=== PATIENT | male | born 1960 | race Caucasian/White ===

== ENCOUNTER 2023-11-12 12:42 | Outpatient (RCR) | payer OTHER, SELFPAY ==
[2023-11-12 13:22] LABS: % Basophils 0.6 % (0-2); % Eosinophils 0.9 % (0-6); % Immature Granulocytes 0.3 % (0-0.5); % Lymphocytes 37.9 % (20.5-51.1); % Monocytes 12.8 % (1.7-9.3); % Neutrophils 47.5 % (42.2-75.2); Absolute Lymphocytes 1.3 10^3/uL (1.2-3.4); Absolute Monocytes 0.4 10^3/uL (0.1-0.6); Absolute Neutrophils 1.6 10^3/uL (1.4-6.5); Hematocrit 41.3 % (39.0-52.0); Hemoglobin 14.1 g/dL (13.0-18.0); Mean Corp Hgb Conc. 34.1 g/dL (33.0-37.0); Mean Corpuscular Hgb 30.6 pg (27.0-31.0); Mean Corpuscular Volume 89.6 fL (80.0-94.0); Mean Platelet Volume 9.8 fL (7.4-10.4); Platelet Count 177 10^3/uL (130-400); Red Blood Cell Count 4.61 10^6/uL (4.70-6.10); Red Cell Dist. Width 12.6 % (11.5-14.5); White Blood Cell Count 3.4 10^3/uL (4.8-10.8)
[2023-11-12 13:27] VITALS: BP 133/60
== END 2023-11-13 09:44 | disposition home or self-care (01) ==
LOC: OID 12:42
PROVIDERS: ATTENDING PHYSICIAN Internal Medicine Hematology & Oncology; FAMILY PHYSICIAN Family Medicine
DX: D45 Polycythemia vera (principal)
CPT/HCPCS: 36591; 85025

== ENCOUNTER 2023-12-10 12:31 | Outpatient (RCR) | payer OTHER, SELFPAY ==
[2023-12-10 13:19] LABS: % Basophils 0.3 % (0-2); % Eosinophils 1.6 % (0-6); % Lymphocytes 34.3 % (20.5-51.1); % Monocytes 12.8 % (1.7-9.3); Absolute Eosinophils 0.1 10^3/uL (0-0.7); Absolute Lymphocytes 1.3 10^3/uL (1.2-3.4); Absolute Monocytes 0.5 10^3/uL (0.1-0.6); Absolute Neutrophils 1.9 10^3/uL (1.4-6.5); Hematocrit 40.6 % (39.0-52.0); Hemoglobin 14.3 g/dL (13.0-18.0); Mean Corp Hgb Conc. 35.2 g/dL (33.0-37.0); Mean Corpuscular Hgb 31.1 pg (27.0-31.0); Mean Corpuscular Volume 88.3 fL (80.0-94.0); Mean Platelet Volume 9.7 fL (7.4-10.4); Platelet Count 185 10^3/uL (130-400); Red Cell Dist. Width 13.4 % (11.5-14.5); White Blood Cell Count 3.8 10^3/uL (4.8-10.8)
== END 2024-01-03 23:59 | disposition home or self-care (01) ==
LOC: OID 12:31
PROVIDERS: ATTENDING PHYSICIAN Internal Medicine Hematology & Oncology; FAMILY PHYSICIAN Family Medicine
DX: D45 Polycythemia vera (principal)
CPT/HCPCS: 36591; 85025

== ENCOUNTER 2024-01-07 12:40 | Outpatient (RCR) | payer OTHER, SELFPAY ==
[2024-01-07 13:25] LABS: % Basophils 0.3 % (0-2); % Eosinophils 2.1 % (0-6); % Immature Granulocytes 0.3 % (0-0.5); % Lymphocytes 32.9 % (20.5-51.1); % Monocytes 10.4 % (1.7-9.3); Absolute Eosinophils 0.1 10^3/uL (0-0.7); Absolute Lymphocytes 1.3 10^3/uL (1.2-3.4); Absolute Monocytes 0.4 10^3/uL (0.1-0.6); Absolute Neutrophils 2.1 10^3/uL (1.4-6.5); Hematocrit 39.6 % (39.0-52.0); Hemoglobin 14.2 g/dL (13.0-18.0); Mean Corp Hgb Conc. 35.9 g/dL (33.0-37.0); Mean Corpuscular Hgb 32.4 pg (27.0-31.0); Mean Corpuscular Volume 90.4 fL (80.0-94.0); Mean Platelet Volume 10.6 fL (7.4-10.4); Platelet Count 102 10^3/uL (130-400); Red Blood Cell Count 4.38 10^6/uL (4.70-6.10); Red Cell Dist. Width 13.9 % (11.5-14.5); White Blood Cell Count 3.8 10^3/uL (4.8-10.8)
== END 2024-02-01 15:57 | disposition home or self-care (01) ==
LOC: OID 12:40
PROVIDERS: ATTENDING PHYSICIAN Internal Medicine Hematology & Oncology; FAMILY PHYSICIAN Family Medicine
DX: D45 Polycythemia vera (principal)
CPT/HCPCS: 85025

== ENCOUNTER 2024-02-04 12:48 | Outpatient (RCR) | payer OTHER, SELFPAY ==
[2024-02-04 13:16] LABS: % Basophils 0.6 % (0-2); % Eosinophils 1.8 % (0-6); % Lymphocytes 42.9 % (20.5-51.1); % Monocytes 14.6 % (1.7-9.3); % Neutrophils 40.1 % (42.2-75.2); Absolute Eosinophils 0.1 10^3/uL (0-0.7); Absolute Lymphocytes 1.4 10^3/uL (1.2-3.4); Absolute Monocytes 0.5 10^3/uL (0.1-0.6); Absolute Neutrophils 1.4 10^3/uL (1.4-6.5); Hematocrit 39.1 % (39.0-52.0); Hemoglobin 14.1 g/dL (13.0-18.0); Mean Corp Hgb Conc. 36.1 g/dL (33.0-37.0); Mean Corpuscular Volume 91.6 fL (80.0-94.0); Mean Platelet Volume 9.4 fL (7.4-10.4); Platelet Count 159 10^3/uL (130-400); Red Blood Cell Count 4.27 10^6/uL (4.70-6.10); Red Cell Dist. Width 12.6 % (11.5-14.5); White Blood Cell Count 3.4 10^3/uL (4.8-10.8)
== END 2024-03-04 23:59 | disposition home or self-care (01) ==
LOC: OID 12:48
PROVIDERS: ATTENDING PHYSICIAN Internal Medicine Hematology & Oncology; FAMILY PHYSICIAN Family Medicine
DX: D45 Polycythemia vera (principal)
CPT/HCPCS: 36591; 85025; 96523

== ENCOUNTER 2024-03-10 12:40 | Outpatient (RCR) | payer OTHER, SELFPAY ==
[2024-03-10 13:05] LABS: % Basophils 0.4 % (0-2); % Eosinophils 1.7 % (0-6); % Immature Granulocytes 0.2 % (0-0.5); % Lymphocytes 29.9 % (20.5-51.1); % Monocytes 10.3 % (1.7-9.3); % Neutrophils 57.5 % (42.2-75.2); Absolute Eosinophils 0.1 10^3/uL (0-0.7); Absolute Lymphocytes 1.4 10^3/uL (1.2-3.4); Absolute Monocytes 0.5 10^3/uL (0.1-0.6); Absolute Neutrophils 2.7 10^3/uL (1.4-6.5); Hematocrit 40.6 % (39.0-52.0); Hemoglobin 14.4 g/dL (13.0-18.0); Mean Corp Hgb Conc. 35.5 g/dL (33.0-37.0); Mean Corpuscular Hgb 33.3 pg (27.0-31.0); Mean Platelet Volume 9.3 fL (7.4-10.4); Platelet Count 168 10^3/uL (130-400); Red Blood Cell Count 4.32 10^6/uL (4.70-6.10); Red Cell Dist. Width 11.7 % (11.5-14.5); White Blood Cell Count 4.7 10^3/uL (4.8-10.8)
== END 2024-03-11 08:40 | disposition home or self-care (01) ==
LOC: OID 12:40
PROVIDERS: ATTENDING PHYSICIAN Internal Medicine Hematology & Oncology; FAMILY PHYSICIAN Family Medicine
DX: D45 Polycythemia vera (principal)
CPT/HCPCS: 36591; 85025

== ENCOUNTER 2024-04-06 12:39 | Outpatient (RCR) | payer OTHER, SELFPAY ==
[2024-04-06 13:05] VITALS: BP 148/66
[2024-04-06 13:13] LABS: % Basophils 0.3 % (0-2); % Eosinophils 2.4 % (0-6); % Lymphocytes 39.2 % (20.5-51.1); % Monocytes 12.2 % (1.7-9.3); % Neutrophils 45.9 % (42.2-75.2); Absolute Eosinophils 0.1 10^3/uL (0-0.7); Absolute Lymphocytes 1.3 10^3/uL (1.2-3.4); Absolute Monocytes 0.4 10^3/uL (0.1-0.6); Absolute Neutrophils 1.5 10^3/uL (1.4-6.5); Hematocrit 41.4 % (39.0-52.0); Hemoglobin 14.9 g/dL (13.0-18.0); Mean Corpuscular Hgb 33.8 pg (27.0-31.0); Mean Corpuscular Volume 93.9 fL (80.0-94.0); Mean Platelet Volume 9.3 fL (7.4-10.4); Platelet Count 170 10^3/uL (130-400); Red Blood Cell Count 4.41 10^6/uL (4.70-6.10); Red Cell Dist. Width 11.6 % (11.5-14.5); White Blood Cell Count 3.3 10^3/uL (4.8-10.8)
[2024-04-06] MEDS: CATHFLO/ACTIVASE 2 MG IV (14:37)
[2024-04-06 15:55] VITALS: BP 119/66
[2024-04-06 16:00] VITALS: BP 123/99
== END 2024-05-02 14:27 | disposition home or self-care (01) ==
LOC: OID 12:39
PROVIDERS: ATTENDING PHYSICIAN Internal Medicine Hematology & Oncology; FAMILY PHYSICIAN Family Medicine
DX: D45 Polycythemia vera (principal)
CPT/HCPCS: 85025; 96374; 99195; J2997

== ENCOUNTER → 2024-04-28 13:36 | Outpatient (REF) | payer OTHER, SELFPAY | LOC: RAD 13:36 | PROVIDERS: FAMILY PHYSICIAN Family Medicine | DX: Z97.8 Presence of other specified devices (principal) | CPT/HCPCS: 72128; 72131 ==

== ENCOUNTER 2024-05-05 12:47 | Outpatient (RCR) | payer OTHER, SELFPAY ==
[2024-05-05 13:20] LABS: % Basophils 0.6 % (0-2); % Eosinophils 1.6 % (0-6); % Lymphocytes 34.7 % (20.5-51.1); % Monocytes 13.9 % (1.7-9.3); % Neutrophils 49.2 % (42.2-75.2); Absolute Eosinophils 0.1 10^3/uL (0-0.7); Absolute Lymphocytes 1.1 10^3/uL (1.2-3.4); Absolute Monocytes 0.4 10^3/uL (0.1-0.6); Absolute Neutrophils 1.6 10^3/uL (1.4-6.5); Hemoglobin 13.8 g/dL (13.0-18.0); Mean Corp Hgb Conc. 35.4 g/dL (33.0-37.0); Mean Corpuscular Hgb 33.4 pg (27.0-31.0); Mean Corpuscular Volume 94.4 fL (80.0-94.0); Mean Platelet Volume 9.5 fL (7.4-10.4); Platelet Count 160 10^3/uL (130-400); Red Blood Cell Count 4.13 10^6/uL (4.70-6.10); Red Cell Dist. Width 11.5 % (11.5-14.5); White Blood Cell Count 3.2 10^3/uL (4.8-10.8)
[2024-05-05 13:24] VITALS: BP 140/72
== END 2024-05-31 15:28 | disposition home or self-care (01) ==
LOC: OID 12:47
PROVIDERS: ATTENDING PHYSICIAN Internal Medicine Hematology & Oncology; FAMILY PHYSICIAN Family Medicine
DX: D45 Polycythemia vera (principal)
CPT/HCPCS: 36591; 85025

== ENCOUNTER → 2024-06-09 13:13 | Outpatient (REF) | payer OTHER, SELFPAY | LOC: RAD 13:13 | PROVIDERS: ATTENDING PHYSICIAN Registered Nurse; FAMILY PHYSICIAN Family Medicine | DX: I77.9 Disorder of arteries and arterioles, unspecified (principal) | CPT/HCPCS: 93922; 93925; 93978 ==

== ENCOUNTER 2024-06-15 12:39 | Outpatient (RCR) | payer OTHER, SELFPAY ==
[2024-06-15 13:09] VITALS: BP 143/72
[2024-06-15 13:27] LABS: % Basophils 0.6 % (0-2); % Eosinophils 2.2 % (0-6); % Lymphocytes 34.2 % (20.5-51.1); % Monocytes 12.7 % (1.7-9.3); % Neutrophils 50.3 % (42.2-75.2); Absolute Eosinophils 0.1 10^3/uL (0-0.7); Absolute Lymphocytes 1.2 10^3/uL (1.2-3.4); Absolute Monocytes 0.5 10^3/uL (0.1-0.6); Absolute Neutrophils 1.8 10^3/uL (1.4-6.5); Hematocrit 40.7 % (39.0-52.0); Hemoglobin 14.5 g/dL (13.0-18.0); Mean Corp Hgb Conc. 35.6 g/dL (33.0-37.0); Mean Corpuscular Hgb 33.7 pg (27.0-31.0); Mean Corpuscular Volume 94.7 fL (80.0-94.0); Mean Platelet Volume 9.3 fL (7.4-10.4); Platelet Count 167 10^3/uL (130-400); Red Cell Dist. Width 11.6 % (11.5-14.5); White Blood Cell Count 3.6 10^3/uL (4.8-10.8)
== END 2024-06-16 08:41 | disposition home or self-care (01) ==
LOC: OID 12:39
PROVIDERS: ATTENDING PHYSICIAN Internal Medicine Hematology & Oncology; FAMILY PHYSICIAN Family Medicine
DX: D45 Polycythemia vera (principal)
CPT/HCPCS: 36591; 85025

== ENCOUNTER → 2024-06-21 13:08 | Outpatient (REF) | payer OTHER, SELFPAY | LOC: RAD 13:08 | PROVIDERS: ATTENDING PHYSICIAN Surgery Vascular Surgery; FAMILY PHYSICIAN Family Medicine | DX: R60.0 Localized edema (principal) | CPT/HCPCS: 74174; Q9967 ==

== ENCOUNTER 2024-07-12 12:39 | Outpatient (RCR) | payer MEDICARE, OTHER, SELFPAY ==
[2024-07-12 13:18] LABS: % Basophils 0.6 % (0-2); % Eosinophils 1.4 % (0-6); % Immature Granulocytes 0.2 % (0-0.5); % Lymphocytes 21.7 % (20.5-51.1); % Monocytes 13.2 % (1.7-9.3); % Neutrophils 62.9 % (42.2-75.2); Absolute Eosinophils 0.1 10^3/uL (0-0.7); Absolute Lymphocytes 1.1 10^3/uL (1.2-3.4); Absolute Monocytes 0.7 10^3/uL (0.1-0.6); Absolute Neutrophils 3.3 10^3/uL (1.4-6.5); Hematocrit 42.6 % (39.0-52.0); Hemoglobin 15.3 g/dL (13.0-18.0); Mean Corp Hgb Conc. 35.9 g/dL (33.0-37.0); Mean Corpuscular Hgb 33.9 pg (27.0-31.0); Mean Corpuscular Volume 94.5 fL (80.0-94.0); Mean Platelet Volume 8.8 fL (7.4-10.4); Platelet Count 143 10^3/uL (130-400); Red Blood Cell Count 4.51 10^6/uL (4.70-6.10); Red Cell Dist. Width 11.7 % (11.5-14.5); White Blood Cell Count 5.2 10^3/uL (4.8-10.8)
[2024-07-12 13:21] VITALS: BP 122/74
[2024-07-12 15:25] VITALS: BP 149/71
[2024-07-12 15:31] VITALS: BP 112/77
== END 2024-07-13 09:54 | disposition home or self-care (01) ==
LOC: OID 12:39
PROVIDERS: ATTENDING PHYSICIAN Internal Medicine Hematology & Oncology; FAMILY PHYSICIAN Family Medicine
DX: D45 Polycythemia vera (principal)
CPT/HCPCS: 85025; 99195

== ENCOUNTER 2024-08-15 12:37 | Outpatient (RCR) | payer MEDICARE, OTHER, SELFPAY ==
[2024-08-15 13:05] VITALS: BP 147/83
[2024-08-15 13:08] LABS: % Basophils 0.6 % (0-2); % Eosinophils 0.8 % (0-6); % Immature Granulocytes 0.2 % (0-0.5); % Monocytes 14.1 % (1.7-9.3); % Neutrophils 58.3 % (42.2-75.2); Absolute Lymphocytes 1.4 10^3/uL (1.2-3.4); Absolute Monocytes 0.8 10^3/uL (0.1-0.6); Absolute Neutrophils 3.1 10^3/uL (1.4-6.5); Hematocrit 42.1 % (39.0-52.0); Hemoglobin 15.2 g/dL (13.0-18.0); Mean Corp Hgb Conc. 36.1 g/dL (33.0-37.0); Mean Corpuscular Volume 94.2 fL (80.0-94.0); Mean Platelet Volume 9.4 fL (7.4-10.4); Nucleated Red Blood Cells % 0 % (-); Platelet Count 178 10^3/uL (130-400); Red Blood Cell Count 4.47 10^6/uL (4.70-6.10); Red Cell Dist. Width 12.3 % (11.5-14.5); White Blood Cell Count 5.3 10^3/uL (4.8-10.8)
[2024-08-15 14:00] VITALS: BP 126/71
[2024-08-15 14:05] VITALS: BP 97/67
== END 2024-08-16 11:05 | disposition home or self-care (01) ==
LOC: OID 12:37
PROVIDERS: ATTENDING PHYSICIAN Internal Medicine Hematology & Oncology; FAMILY PHYSICIAN Family Medicine
DX: D45 Polycythemia vera (principal)
CPT/HCPCS: 85025; 99195

== ENCOUNTER 2024-09-13 12:35 | Outpatient (RCR) | payer MEDICARE, OTHER, SELFPAY ==
[2024-09-13 13:07] VITALS: BP 143/78
[2024-09-13 13:35] LABS: % Basophils 0.3 % (0-2); % Eosinophils 1.1 % (0-6); % Immature Granulocytes 0.2 % (0-0.5); % Lymphocytes 12.5 % (20.5-51.1); % Monocytes 7.6 % (1.7-9.3); % Neutrophils 78.3 % (42.2-75.2); Absolute Eosinophils 0.1 10^3/uL (0-0.7); Absolute Lymphocytes 0.8 10^3/uL (1.2-3.4); Absolute Monocytes 0.5 10^3/uL (0.1-0.6); Absolute Neutrophils 5.2 10^3/uL (1.4-6.5); Hematocrit 41.4 % (39.0-52.0); Hemoglobin 14.8 g/dL (13.0-18.0); Mean Corp Hgb Conc. 35.7 g/dL (33.0-37.0); Mean Corpuscular Hgb 34.4 pg (27.0-31.0); Mean Corpuscular Volume 96.3 fL (80.0-94.0); Mean Platelet Volume 9.1 fL (7.4-10.4); Platelet Count 179 10^3/uL (130-400); Red Cell Dist. Width 11.7 % (11.5-14.5); White Blood Cell Count 6.6 10^3/uL (4.8-10.8)
== END 2024-10-04 23:59 | disposition home or self-care (01) ==
LOC: OID 12:35
PROVIDERS: ATTENDING PHYSICIAN Internal Medicine Hematology & Oncology; FAMILY PHYSICIAN Family Medicine
DX: D45 Polycythemia vera (principal)
CPT/HCPCS: 36591; 85025

== ENCOUNTER 2024-10-11 12:36 | Outpatient (RCR) | payer MEDICARE, OTHER, SELFPAY ==
[2024-10-11 13:00] VITALS: BP 128/71
[2024-10-11 13:33] LABS: % Basophils 0.6 % (0-2); % Eosinophils 1.6 % (0-6); % Lymphocytes 39.4 % (20.5-51.1); % Neutrophils 41.4 % (42.2-75.2); Absolute Eosinophils 0.1 10^3/uL (0-0.7); Absolute Lymphocytes 1.2 10^3/uL (1.2-3.4); Absolute Monocytes 0.5 10^3/uL (0.1-0.6); Absolute Neutrophils 1.3 10^3/uL (1.4-6.5); Hematocrit 41.3 % (39.0-52.0); Hemoglobin 14.5 g/dL (13.0-18.0); Mean Corp Hgb Conc. 35.1 g/dL (33.0-37.0); Mean Corpuscular Hgb 33.3 pg (27.0-31.0); Mean Corpuscular Volume 94.9 fL (80.0-94.0); Mean Platelet Volume 9.2 fL (7.4-10.4); Platelet Count 157 10^3/uL (130-400); Red Blood Cell Count 4.35 10^6/uL (4.70-6.10); Red Cell Dist. Width 11.3 % (11.5-14.5); White Blood Cell Count 3.1 10^3/uL (4.8-10.8)
== END 2024-10-12 08:43 | disposition home or self-care (01) ==
LOC: OID 12:36
PROVIDERS: ATTENDING PHYSICIAN Internal Medicine Hematology & Oncology; FAMILY PHYSICIAN Family Medicine
DX: D45 Polycythemia vera (principal)
CPT/HCPCS: 36591; 85025

== ENCOUNTER 2024-11-09 12:35 | Outpatient (RCR) | payer MEDICARE, OTHER, SELFPAY ==
[2024-11-09 12:55] LABS: % Basophils 0.5 % (0-2); % Immature Granulocytes 0.3 % (0-0.5); % Lymphocytes 34.5 % (20.5-51.1); % Monocytes 13.3 % (1.7-9.3); % Neutrophils 50.4 % (42.2-75.2); Absolute Lymphocytes 1.3 10^3/uL (1.2-3.4); Absolute Monocytes 0.5 10^3/uL (0.1-0.6); Absolute Neutrophils 1.9 10^3/uL (1.4-6.5); Hematocrit 44.4 % (39.0-52.0); Hemoglobin 15.5 g/dL (13.0-18.0); Mean Corp Hgb Conc. 34.9 g/dL (33.0-37.0); Mean Corpuscular Hgb 32.6 pg (27.0-31.0); Mean Corpuscular Volume 93.3 fL (80.0-94.0); Mean Platelet Volume 9.2 fL (7.4-10.4); Platelet Count 197 10^3/uL (130-400); Red Blood Cell Count 4.76 10^6/uL (4.70-6.10); Red Cell Dist. Width 11.7 % (11.5-14.5); White Blood Cell Count 3.8 10^3/uL (4.8-10.8)
[2024-11-09 13:00] VITALS: BP 154/81
[2024-11-09 13:45] VITALS: BP 125/72
[2024-11-09 14:20] VITALS: BP 107/69
== END 2024-11-10 08:34 | disposition home or self-care (01) ==
LOC: OID 12:35
PROVIDERS: ATTENDING PHYSICIAN Internal Medicine Hematology & Oncology; FAMILY PHYSICIAN Family Medicine
DX: D45 Polycythemia vera (principal)
CPT/HCPCS: 85025; 99195

== ENCOUNTER 2024-12-07 12:37 | Outpatient (RCR) | payer MEDICARE, OTHER, SELFPAY ==
[2024-12-07 13:20] LABS: % Basophils 0.7 % (0-2); % Eosinophils 1.7 % (0-6); % Lymphocytes 38.6 % (20.5-51.1); % Monocytes 15.3 % (1.7-9.3); % Neutrophils 43.7 % (42.2-75.2); Absolute Eosinophils 0.1 10^3/uL (0-0.7); Absolute Lymphocytes 1.1 10^3/uL (1.2-3.4); Absolute Monocytes 0.5 10^3/uL (0.1-0.6); Absolute Neutrophils 1.3 10^3/uL (1.4-6.5); Hematocrit 39.8 % (39.0-52.0); Hemoglobin 13.8 g/dL (13.0-18.0); Mean Corp Hgb Conc. 34.7 g/dL (33.0-37.0); Mean Corpuscular Hgb 32.5 pg (27.0-31.0); Mean Corpuscular Volume 93.9 fL (80.0-94.0); Mean Platelet Volume 9.1 fL (7.4-10.4); Platelet Count 185 10^3/uL (130-400); Red Blood Cell Count 4.24 10^6/uL (4.70-6.10); Red Cell Dist. Width 12.4 % (11.5-14.5)
--- NOTE | 2024-12-07 14:01 | PTCARENOTE ---
Therapeutic phlebotomy held Hgb 13.8 Hct 39.8. port flushed with heparin and d/c home.
== END 2024-12-08 09:37 | disposition home or self-care (01) ==
LOC: OID 12:37
PROVIDERS: ATTENDING PHYSICIAN Internal Medicine Hematology & Oncology; FAMILY PHYSICIAN Family Medicine
DX: D45 Polycythemia vera (principal)
CPT/HCPCS: 85025; 96523

== ENCOUNTER 2025-01-04 12:38 | Outpatient (RCR) | payer MEDICARE, OTHER, SELFPAY ==
[2025-01-04 13:06] LABS: % Basophils 0.3 % (0-2); % Eosinophils 0.6 % (0-6); % Immature Granulocytes 0.3 % (0-0.5); % Lymphocytes 36.5 % (20.5-51.1); % Monocytes 14.2 % (1.7-9.3); % Neutrophils 48.1 % (42.2-75.2); Absolute Lymphocytes 1.2 10^3/uL (1.2-3.4); Absolute Monocytes 0.5 10^3/uL (0.1-0.6); Absolute Neutrophils 1.6 10^3/uL (1.4-6.5); Hematocrit 41.5 % (39.0-52.0); Hemoglobin 14.6 g/dL (13.0-18.0); Mean Corp Hgb Conc. 35.2 g/dL (33.0-37.0); Mean Corpuscular Hgb 32.9 pg (27.0-31.0); Mean Corpuscular Volume 93.5 fL (80.0-94.0); Mean Platelet Volume 9.1 fL (7.4-10.4); Platelet Count 174 10^3/uL (130-400); Red Blood Cell Count 4.44 10^6/uL (4.70-6.10); Red Cell Dist. Width 12.4 % (11.5-14.5); White Blood Cell Count 3.4 10^3/uL (4.8-10.8)
== END 2025-02-01 23:59 | disposition home or self-care (01) ==
LOC: OID 12:38
PROVIDERS: ATTENDING PHYSICIAN Internal Medicine Hematology & Oncology; FAMILY PHYSICIAN Family Medicine
DX: D45 Polycythemia vera (principal)
CPT/HCPCS: 85025; 96523

== ENCOUNTER 2025-02-13 12:39 | Outpatient (RCR) | payer MEDICARE, OTHER, SELFPAY ==
[2025-02-13 13:18] LABS: % Basophils 0.3 % (0-2); % Eosinophils 1.5 % (0-6); % Immature Granulocytes 0.3 % (0-0.5); % Lymphocytes 36.9 % (20.5-51.1); Absolute Eosinophils 0.1 10^3/uL (0-0.7); Absolute Lymphocytes 1.3 10^3/uL (1.2-3.4); Absolute Monocytes 0.6 10^3/uL (0.1-0.6); Absolute Neutrophils 1.6 10^3/uL (1.4-6.5); Hemoglobin 15.3 g/dL (13.0-18.0); Mean Corp Hgb Conc. 35.6 g/dL (33.0-37.0); Mean Corpuscular Hgb 33.3 pg (27.0-31.0); Mean Corpuscular Volume 93.5 fL (80.0-94.0); Mean Platelet Volume 8.8 fL (7.4-10.4); Platelet Count 159 10^3/uL (130-400); Red Cell Dist. Width 12.8 % (11.5-14.5); White Blood Cell Count 3.4 10^3/uL (4.8-10.8)
[2025-02-13 13:27] VITALS: BP 156/87
[2025-02-13 15:05] VITALS: BP 149/79
[2025-02-13 15:10] VITALS: BP 118/72
== END 2025-03-04 23:59 | disposition home or self-care (01) ==
LOC: OID 12:39
PROVIDERS: ATTENDING PHYSICIAN Internal Medicine Hematology & Oncology; FAMILY PHYSICIAN Family Medicine
DX: D45 Polycythemia vera (principal)
CPT/HCPCS: 85025; 99195

== ENCOUNTER 2025-03-13 12:30 | Outpatient (RCR) | payer MEDICARE, OTHER, SELFPAY ==
[2025-03-13 13:22] LABS: % Eosinophils 0.6 % (0-6); % Immature Granulocytes 0.3 % (0-0.5); % Monocytes 14.4 % (1.7-9.3); % Neutrophils 50.7 % (42.2-75.2); Absolute Monocytes 0.5 10^3/uL (0.1-0.6); Absolute Neutrophils 1.6 10^3/uL (1.4-6.5); Hematocrit 39.5 % (39.0-52.0); Mean Corp Hgb Conc. 35.4 g/dL (33.0-37.0); Mean Corpuscular Hgb 33.3 pg (27.0-31.0); Mean Platelet Volume 9.1 fL (7.4-10.4); Platelet Count 166 10^3/uL (130-400); Red Cell Dist. Width 12.7 % (11.5-14.5); White Blood Cell Count 3.1 10^3/uL (4.8-10.8)
== END 2025-04-03 23:59 | disposition home or self-care (01) ==
LOC: OID 12:30
PROVIDERS: ATTENDING PHYSICIAN Internal Medicine Hematology & Oncology; FAMILY PHYSICIAN Family Medicine
DX: D45 Polycythemia vera (principal)
CPT/HCPCS: 36591; 85025; 96523

== ENCOUNTER 2025-04-20 12:36 | Outpatient (RCR) | payer MEDICARE, OTHER, SELFPAY ==
[2025-04-20 13:00] VITALS: BP 148/84
[2025-04-20 13:03] LABS: Hematocrit 44.0 % (39.0-52.0); Hemoglobin 15.5 g/dL (13.0-18.0); Mean Corp Hgb Conc. 35.2 g/dL (33.0-37.0); Mean Corpuscular Volume 94.8 fL (80.0-94.0); Platelet Count 176 10^3/uL (130-400); Red Cell Dist. Width 12.4 % (11.5-14.5)
[2025-04-20 14:15] VITALS: BP 118/65
[2025-04-20 14:30] VITALS: BP 103/62
== END 2025-04-21 10:39 | disposition home or self-care (01) ==
LOC: OID 12:36
PROVIDERS: ATTENDING PHYSICIAN Internal Medicine Hematology & Oncology; FAMILY PHYSICIAN Family Medicine
DX: D45 Polycythemia vera (principal)
CPT/HCPCS: 36591; 85025; 99195

== ENCOUNTER 2025-05-18 12:36 | Outpatient (RCR) | payer MEDICARE, OTHER, SELFPAY ==
[2025-05-18 13:00] VITALS: BP 144/74
[2025-05-18 13:16] LABS: Hematocrit 39.2 % (39.0-52.0); Hemoglobin 13.7 g/dL (13.0-18.0); Mean Corp Hgb Conc. 34.9 g/dL (33.0-37.0); Mean Corpuscular Volume 94.7 fL (80.0-94.0); Platelet Count 215 10^3/uL (130-400); Red Cell Dist. Width 12.3 % (11.5-14.5)
== END 2025-05-19 08:13 | disposition home or self-care (01) ==
LOC: OID 12:36
PROVIDERS: ATTENDING PHYSICIAN Internal Medicine Hematology & Oncology; FAMILY PHYSICIAN Family Medicine
DX: D45 Polycythemia vera (principal)
CPT/HCPCS: 85025

== ENCOUNTER → 2025-06-08 12:07 | Outpatient (REF) | payer MEDICARE, OTHER, SELFPAY ==
[2025-06-08 13:10] VITALS: BP 160/82; BP_SYST 63
[2025-06-08 13:58] VITALS: BP 139/77; BP_SYST 58
[2025-06-08 14:05] VITALS: BP 139/77
== END ==
LOC: RADI 12:07
PROVIDERS: ATTENDING PHYSICIAN Internal Medicine Hematology & Oncology; FAMILY PHYSICIAN Family Medicine
DX: Z45.2 Encounter for adjustment and management of vascular access device (principal); D45 Polycythemia vera
CPT/HCPCS: 36598

== ENCOUNTER → 2025-06-27 08:26 | Outpatient (REF) | payer MEDICARE, OTHER, SELFPAY ==
[2025-06-27 08:55] VITALS: BP 148/93; BP_SYST 53
[2025-06-27] MEDS: ANCEF 10 IV (09:58)
[2025-06-27 12:25] VITALS: BP 136/71; BP_SYST 53
== END ==
LOC: RADI 08:26
PROVIDERS: ATTENDING PHYSICIAN Internal Medicine Hematology & Oncology
DX: T82.594A Other mechanical complication of infusion catheter, initial encounter (principal); Y82.8 Other medical devices associated with adverse incidents; D45 Polycythemia vera
CPT/HCPCS: 36561; 36590; 76937; 77001; 99152; 99153; C1788

== ENCOUNTER 2025-07-17 12:37 | Outpatient (RCR) | payer MEDICARE, OTHER, SELFPAY ==
[2025-07-17 13:10] LABS: Hematocrit 39.9 % (39.0-52.0); Hemoglobin 14.1 g/dL (13.0-18.0); Mean Corp Hgb Conc. 35.3 g/dL (33.0-37.0); Mean Corpuscular Volume 93.2 fL (80.0-94.0); Platelet Count 193 10^3/uL (130-400); Red Cell Dist. Width 12.6 % (11.5-14.5)
== END 2025-08-04 23:59 | disposition home or self-care (01) ==
LOC: OID 12:37
PROVIDERS: ATTENDING PHYSICIAN Internal Medicine Hematology & Oncology; FAMILY PHYSICIAN Family Medicine
DX: D45 Polycythemia vera (principal)
CPT/HCPCS: 36591; 85025

== ENCOUNTER → 2025-07-24 12:42 | Outpatient (REF) | payer MEDICARE, OTHER, SELFPAY | LOC: RAD 12:42 | PROVIDERS: ATTENDING PHYSICIAN Surgery Vascular Surgery; FAMILY PHYSICIAN Family Medicine | DX: R60.0 Localized edema (principal) | CPT/HCPCS: 93978 ==

== ENCOUNTER 2025-08-16 12:41 | Outpatient (RCR) | payer MEDICARE, OTHER, SELFPAY ==
[2025-08-16 13:23] LABS: Hematocrit 42.8 % (39.0-52.0); Hemoglobin 14.7 g/dL (13.0-18.0); Mean Corp Hgb Conc. 34.3 g/dL (33.0-37.0); Mean Corpuscular Volume 94.3 fL (80.0-94.0); Platelet Count 193 10^3/uL (130-400); Red Cell Dist. Width 12.9 % (11.5-14.5)
== END 2025-09-03 23:59 | disposition home or self-care (01) ==
LOC: OID 12:41
PROVIDERS: ATTENDING PHYSICIAN Internal Medicine Hematology & Oncology; FAMILY PHYSICIAN Family Medicine
DX: D45 Polycythemia vera (principal)
CPT/HCPCS: 36591; 85025

== ENCOUNTER 2025-09-13 12:31 | Outpatient (RCR) | payer MEDICARE, OTHER, SELFPAY ==
[2025-09-13 13:09] LABS: Hematocrit 45.3 % (39.0-52.0); Hemoglobin 15.7 g/dL (13.0-18.0); Mean Corp Hgb Conc. 34.7 g/dL (33.0-37.0); Mean Corpuscular Volume 97.0 fL (80.0-94.0); Platelet Count 186 10^3/uL (130-400); Red Cell Dist. Width 12.9 % (11.5-14.5)
[2025-09-13 13:12] VITALS: BP 140/77
[2025-09-13 14:35] VITALS: BP 122/78
[2025-09-13 14:45] VITALS: BP 109/68
== END 2025-09-14 09:56 | disposition home or self-care (01) ==
LOC: OID 12:31
PROVIDERS: ATTENDING PHYSICIAN Internal Medicine Hematology & Oncology; FAMILY PHYSICIAN Family Medicine
DX: D45 Polycythemia vera (principal)
CPT/HCPCS: 85025; 99195

== ENCOUNTER → 2025-09-21 06:31 | Outpatient (REF) | payer MEDICARE, OTHER, SELFPAY ==
[2025-09-21] VITALS (10 sets, daily range): BP systolic 57–167; BP diastolic 70–114
[2025-09-21 08:48] LABS: Glucose - Point of Care 143 mg/dl (70-99)
== END ==
LOC: RADI 06:31
PROVIDERS: ATTENDING PHYSICIAN Internal Medicine Hematology & Oncology; FAMILY PHYSICIAN Family Medicine
DX: Z45.2 Encounter for adjustment and management of vascular access device (principal); D45 Polycythemia vera
CPT/HCPCS: 36590; 77001; 82962; C1769